=== PATIENT | male | born 1970 | race Caucasian/White ===

== ENCOUNTER 2021-02-15 16:04 | Emergency (ER) | payer BC ==
[2021-02-15] MEDS ORDERED: Aspirin 81 MG Tab.Chew PO ONE (16:41)
--- NOTE | 2021-02-15 18:14 | EDM.PDOC ---
<Mani De Jesus - Last Filed: 02/15/21 18:09> ED HPI GENERAL MEDICAL PROBLEM - General Chief Complaint: Chest Pain Stated Complaint: CHEST PAIN Time Seen by Provider: 02/15/21 16:17 Source of Information: Reports: Patient, Other () - History of Present Illness INITIAL COMMENTS - FREE TEXT/NARRATIVE: The patient is come to the emergency department with a chest pain complaint. Onset was about 2 hours prior to presentation. The patient does not recall exactly what he was doing at the time the chest pain started. A short while prior to this he was doing some digging in the yard for a plumbing problem. He does not think there was any direct association with the exertion and he has had no problems with exertional chest pain or other symptoms related to exertion. There was no diaphoresis. No shortness of breath. There was possibly some radiation to his neck. There was no syncope or near syncope and the pain did not have any howard interference with normal activity. The patient describes the pain as "sharp" and in his central chest. At the hospital at exam he was not experiencing any chest pain. Patient did not take any medication or any other measure to moderate symptoms prior to arrival. Risk factors include hypertension and a history of asthma. He is a non-smoker. Middle Chest Pain Score (Numeric/FACES): 7 - Related Data Allergies Allergy/AdvReac Type Severity Reaction Status Date / Time No Known Allergies Allergy Verified 02/15/21 16:19 Home Meds: Home Meds Albuterol Sulfate [Proventil Hfa] 1 - 2 puff IH Q4H PRN 02/15/21 [History] Multivitamin 1 each PO DAILY 02/15/21 [History] Omalizumab [Xolair] 1 injection SQ ASDIRECTED 02/15/21 [History] lisinopriL [Lisinopril] 20 mg PO DAILY 02/15/21 [History] Past Medical History Cardiovascular History: Reports: Hypertension Respiratory History: Reports: Asthma Gastrointestinal History: Reports: GERD Endocrine/Metabolic History: Reports: Obesity/BMI 30+ - Past Surgical History Cardiovascular Surgical History: Reports: Other (See Below) Other Cardiovascular Surgeries/Procedures: Angiogram Musculoskeletal Surgical History: Reports: Shoulder Surgery Social & Family History - Tobacco Use Tobacco Use Status *Q: Never Tobacco User - Caffeine Use Caffeine Use: Reports: Coffee, Soda - Recreational Drug Use Recreational Drug Use: No ED ROS GENERAL - Review of Systems Review Of Systems: Comprehensive ROS is negative, except as noted in HPI. ED EXAM, GENERAL - Physical Exam Exam: See Below Free Text/Narrative:: On exam the patient is alert and looks well. Head normocephalic atraumatic. EOMI PERRLA. Neck is supple without jugular venous distention or hepatojugular reflux. There are no carotid bruits. Lungs are clear with breath sounds full and equal bilaterally. No wheeze could be induced by forced exhalation. Heart is regular without murmur S1-S2 without gallop. Abdomen soft and nontender. No peripheral edema cyanosis or clubbing. Neurologically intact with fluent speech normal gait no weakness or sensory deficits. Course - Vital Signs Text/Narrative:: The patient has remained stable without any salient lab abnormals other than a mildly elevated white count at 14,000.. Troponin is negative. Chest x-ray unremarkable, report is pending. EKG without acute change. Discussed fully with the patient and his . The presentation is a bit equivocal for an acute cardiological issue. I recommended that the patient have a second troponin and EKG at the 3-hour maria a and disposition most likely to home if that is negative and patient remains asymptomatic. Urinalysis is added for completeness in light of the somewhat elevated white count. Departure - Departure Disposition: Home, Self-Care 01 Clinical Impression: Atypical chest pain Instructions: Nonspecific Chest Pain, Adult, [id number] Referrals: PCP,None [Primary Care Provider] - Forms: ED Department Discharge Additional Instructions: You were evaluated in the ER today for your chest pain. A thorough cardiac work-up was obtained at today's visit, and you are not suffering from a heart attack at today's visit. Your chest pain may likely be due to skeletal skeletal etiology, recommend you try Tylenol or ibuprofen every 6 hours as needed for further discomfort over the next few days to see if this helps relieve some of your symptoms. Highly recommend you follow-up with your regular care provider, sometime within the next week to 10 days to make sure that everything is getting better as expected. Please return to the ER at any time if symptoms change or worsen. Sepsis Event Note (ED) - Evaluation Sepsis Screening Result: No Definite Risk <Clari Barriga V - Last Filed: 02/15/21 20:35> #2 Interpretation EKG Date: 02/15/21 Time: 19:43 Rhythm: NSR Rate (Beats/Min): 77 Heartwell: LAD-Left Heartwell Deviation (borderline) P-Wave: Present QRS: Normal ST-T: Normal QT: Normal Comparison: No Change EKG Interpretation Comments: No obvious ischemia or acute ST changes noted, reviewed by myself and Dr. Rocha. #1 Interpretation EKG Date: 02/15/21 Time: 16:15 Rhythm: NSR Rate (Beats/Min): 75 Heartwell: LAD-Left Heartwell Deviation P-Wave: Present QRS: Normal ST-T: Normal QT: Normal Course - Vital Signs Last Recorded V/S: Last Vital Signs Temp 97.6 F 02/15/21 16:14 Pulse 80 02/15/21 16:14 Resp 16 02/15/21 16:14 BP 154/101 H 02/15/21 16:14 Pulse Ox 97 02/15/21 16:14 - Orders/Labs/Meds Orders: Active Orders 24 hr Category Date Time Status EKG 12 Lead [EKG Documentation Completion] [RC] ROUTINE Care 02/15/21 16:22 Active EKG Documentation Completion [RC] ASDIRECTED Care 02/15/21 19:45 Ordered Chest 1V Frontal [CR] Stat Exams 02/15/21 16:42 Taken UA W/ELIZABETH RFLX IF INDICATED [URIN] Stat Lab 02/15/21 18:18 Ordered Labs: Laboratory Tests 02/15/21 02/15/21 02/15/21 Range/Units 16:15 16:15 16:15 WBC 14.21 H (4.23-9.07) K/mm3 RBC 5.60 (4.63-6.08) M/mm3 Hgb 16.1 (13.7-17.5) gm/dl Hct 47.0 (40.1-51.0) % MCV 83.9 (79.0-92.2) fl MCH 28.8 (25.7-32.2) pg MCHC 34.3 (32.2-35.5) g/dl RDW Std Deviation 40.9 (35.1-43.9) fL Plt Count 312 (163-337) K/mm3 MPV 10.7 (9.4-12.3) fl Neutrophils % (Manual) 60 (40-60) % Band Neutrophils % 1 (0-10) % Lymphocytes % (Manual) 31 (20-40) % Atypical Lymphs % 0 % Monocytes % (Manual) 8 (2-10) % Eosinophils % (Manual) 0 L (0.8-7.0) % Basophils % (Manual) 0 L (0.2-1.2) Platelet Estimate Adequate RBC Morph Comment Normal PT 10.3 (9.7-12.0) SECONDS INR 0.96 D-Dimer, Quantitative 0.26 (0.19-0.50) mg/L Sodium 142 (136-145) mEq/L Potassium 3.9 (3.5-5.1) mEq/L Chloride 104 (98-107) mEq/L Carbon Dioxide 25 (21-32) mEq/L Anion Gap 16.9 H (5-15) BUN 19 H (7-18) mg/dL Creatinine 1.1 (0.7-1.3) mg/dL Est Cr Clr Drug Dosing 71.69 mL/min Estimated GFR (MDRD) > 60 (>60) mL/min BUN/Creatinine Ratio 17.3 (14-18) Glucose 124 H (74-106) mg/dL Calcium 9.4 (8.5-10.1) mg/dL Total Bilirubin 0.2 (0.2-1.0) mg/dL AST 24 (15-37) U/L ALT 57 (16-63) U/L Alkaline Phosphatase 164 H (46-116) U/L Troponin I < 0.017 (0.00-0.056) ng/mL Total Protein 7.4 (6.4-8.2) g/dl Albumin 4.2 (3.4-5.0) g/dl Globulin 3.2 gm/dL Albumin/Globulin Ratio 1.3 (1-2) 02/15/21 Range/Units 19:52 WBC (4.23-9.07) K/mm3 RBC (4.63-6.08) M/mm3 Hgb (13.7-17.5) gm/dl Hct (40.1-51.0) % MCV (79.0-92.2) fl MCH (25.7-32.2) pg MCHC (32.2-35.5) g/dl RDW Std Deviation (35.1-43.9) fL Plt Count (163-337) K/mm3 MPV (9.4-12.3) fl Neutrophils % (Manual) (40-60) % Band Neutrophils % (0-10) % Lymphocytes % (Manual) (20-40) % Atypical Lymphs % % Monocytes % (Manual) (2-10) % Eosinophils % (Manual) (0.8-7.0) % Basophils % (Manual) (0.2-1.2) Platelet Estimate RBC Morph Comment PT (9.7-12.0) SECONDS INR D-Dimer, Quantitative (0.19-0.50) mg/L Sodium (136-145) mEq/L Potassium (3.5-5.1) mEq/L Chloride (98-107) mEq/L Carbon Dioxide (21-32) mEq/L Anion Gap (5-15) BUN (7-18) mg/dL Creatinine (0.7-1.3) mg/dL Est Cr Clr Drug Dosing mL/min Estimated GFR (MDRD) (>60) mL/min BUN/Creatinine Ratio (14-18) Glucose (74-106) mg/dL Calcium (8.5-10.1) mg/dL Total Bilirubin (0.2-1.0) mg/dL AST (15-37) U/L ALT (16-63) U/L Alkaline Phosphatase (46-116) U/L Troponin I < 0.017 (0.00-0.056) ng/mL Total Protein (6.4-8.2) g/dl Albumin (3.4-5.0) g/dl Globulin gm/dL Albumin/Globulin Ratio (1-2) Meds: Medications Discontinued Medications Generic Name Dose Route Start Last Admin Trade Name Freq PRN Reason Stop Dose Admin Aspirin 324 mg 02/15/21 16:41 02/15/21 17:09 Aspirin 81 Mg Tab.Chew PO 02/15/21 16:42 324 mg ONETIME ONE Administration - Re-Assessments/Exams Free Text/Narrative Re-Assessment/Exam: 02/15/21 19:14 Patient case taken over from Dr. De Jesus. Have placed 3-hour EKG and troponin for 7:45 PM. Tentative plan as noted above is to hopefully send the patient home with conservative measures. 02/15/21 19:51 Second EKG demonstrates normal sinus rhythm, no acute ST change or abnormalities. 02/15/21 20:33 3-hour troponin is negative. Patient was made aware and he is ready to go home. Patient be discharged with general conservative recommendations. Departure - Departure Time of Disposition: 20:33 Condition: Good Sepsis Event Note (ED) - Focused Exam Vital Signs: Vital Signs Temp Pulse Resp BP Pulse Ox 02/15/21 16:14 97.6 F 80 16 154/101 H 97 - My Orders Last 24 Hours: My Active Orders 02/15/21 19:45 EKG Documentation Completion [RC] ASDIRECTED - Assessment/Plan Last 24 Hours: My Active Orders 02/15/21 19:45 EKG Documentation Completion [RC] ASDIRECTED
--- NOTE | 2021-02-17 08:34 | CR ---
Chest: Portable view of the chest was obtained. Comparison: No prior chest imaging is available. Heart size and mediastinum are normal. Lungs are clear with no acute parenchymal change. No acute osseous abnormality is seen. Prior surgery is noted within the left shoulder. Impression: 1. Nothing acute is seen on portable chest x-ray. Diagnostic code #2
== END 2021-02-15 20:40 | disposition home or self-care (01) ==
LOC: JD.ED 16:04 → EDBD 16:04 → JD.ED 20:40
DX: R07.89 Other chest pain (principal); I10 Essential (primary) hypertension; J45.909 Unspecified asthma, uncomplicated; E66.9 Obesity, unspecified; Z68.33 Body mass index [BMI] 33.0-33.9, adult; Z79.899 Other long term (current) drug therapy
CPT/HCPCS: 36415; 71045; 80053; 81003; 84484; 85007; 85027; 85379; 85610; 93005; 99285; A9270; 93010; 99284